=== PATIENT | female | born 1985 | race Caucasian/White ===

== ENCOUNTER 2016-08-07 20:55 | Emergency (ER) | payer BC, OTHER ==
[~2016-08-07] VITALS: Ht 165.1 cm; Wt 85.6 kg
[~2016-08-07 20:55] MED LIST: CALC500C50 PO; CETI10TA10 PO; PRENTAB26 PO; [UNRECOGNIZED DRUG - CODE] PO
[2016-08-07 20:58] VITALS: Ht 165.1 cm; Wt 85.6 kg
[2016-08-07] MEDS ORDERED: SODIUM CHLORIDE 0.9% 1000ML 1,000 ML IV STA (21:03)
--- NOTE | 2016-08-07 21:20 | EMERGENCY ROOM VISIT NOTE ---
History Report prepared by Buck: Jaelyn Royal Under the Supervision of: Dr. Anne Aquino M.D. First contact with patient: 20:57 Chief Complaint: CONFUSION Stated Complaint: FEVER, BODY ACHES, CONFUSSION, History of Present Illness The patient is a 31 year old female who presents to the Emergency Room with complaints of a persistent illness that began 1 week ago. She currently rates her discomfort as a 4/10 in severity. The patient states that 1 week ago her son got sick and states that she began feeling ill shortly after. She states that 1 week ago she tested negative for strep. The patient reports body and joint aches today. She additionally notes an intermittent fever measured up to 101 degrees Fahrenheit. The patient states that she went to her PCP today for concerns of the flu. She states that she had a urinalysis done, blood work testing her liver and kidney functions and a blood culture. The patient states that she was told if she started to feel worse, she should come to the emergency department. She states that this evening she started feeling confused and slow. The patient reports a history of PCOS and hypothyroidism. She reports that she is a nonsmoker. The patient denies any cough, vomiting, or diarrhea. Source of History: patient Onset: 1 week ago Position: other (global) Symptom Intensity: 4/10 Quality: other (illness) Timing: other (persistent) Associated Symptoms: + fevers, No cough, No vomiting, No diarrhea Note: Associated Symptoms: body and joint aches, confused, slow Review of Systems See HPI for pertinent positives & negatives. A total of 10 systems reviewed and were otherwise negative. Past Medical & Surgical Medical Problems: (1) 40 weeks gestation of (2) Insulin controlled gestational diabetes mellitus in third trimester (3) Normal labor and delivery (4) Shoulder (girdle) dystocia during labor and delivery Family History Diabetes mellitus Heart disease Hypertension Social History Smoking Status: Current Every Day Smoker Alcohol Use: occasionally Marital Status: Housing Status: lives with family Occupation Status: employed Current/Historical Medications Scheduled Atenolol (Tenormin), 25 MG PO DAILY Cetirizine Hcl (Zyrtec), 10 MG PO DAILY Levothyroxine Sodium (Levothyroxine Sodium), 75 MCG PO DAILY Metformin Hcl (Glucophage), 1,000 MG PO BID Norethindrone & Eth Estradiol (Dasetta ), 1 TAB PO DAILY Spironolactone (Aldactone), 50 MG PO DAILY Allergies Coded Allergies: No Known Allergies (Unverified , 01/11/15) Physical Exam Vital Signs Date Time Temp Pulse Resp B/P (MAP) Pulse Ox O2 Delivery O2 Flow Rate FiO2 08/07/16 23:25 37.4 81 18 100/57 96 08/07/16 22:32 91 18 105/66 99 Room Air 08/07/16 22:05 87 08/07/16 20:58 37.6 97 18 120/85 98 Room Air Physical Exam Vital signs reviewed. General: Well-appearing female, in no significant distress. HEENT: No scleral icterus, PERRLA, TMs clear bilaterally, clear posterior oropharynx, neck supple. Atraumatic. Cardiovascular: Regular rate and rhythm, no extra sounds. Pulmonary: Clear to auscultation bilaterally, normal work of breathing. Abdomen: Soft, nontender, nondistended, positive bowel sounds. Musculoskeletal: Atraumatic, no peripheral edema. Neurologic: Patient awake alert and oriented x 3, full strength in all 4 extremities. Cranial nerves 2 through 12 grossly intact. No meningeal signs. Skin: Warm, dry, no rash Medical Decision & Procedures ER Provider Diagnostic Interpretation: CT results as stated below per my review and radiologist interpretation: CT OF THE HEAD WITHOUT CONTRAST CLINICAL HISTORY: Altered mental status. Fever. COMPARISON STUDY: No previous studies for comparison. CT DOSE: 537.48 mGy.cm TECHNIQUE: Helical axial images of the head were obtained without IV contrast. Automated exposure control was utilized for the study. FINDINGS: No acute intracranial hemorrhage, midline shift or mass effect is present. Ventricular system is normal. Basilar cisterns are patent. There are no extra-axial collections. Valle-white differentiation is maintained. There are no findings to suggest acute dural sinus thrombosis or acute territorial infarct. There are no significant calvarial abnormalities. There is minimal mucosal thickening of the sinuses. Mastoid air cells are clear. IMPRESSION: No acute intracranial findings. Electronically signed by: Rah Becerra M.D. 08/07/2016 9:51 PM Dictated Date/Time: 08/07/2016 9:47 PM Laboratory Results 08/07/16 21:15 Red Blood Count 4.74, Mean Corpuscular Volume 84.2, Mean Corpuscular Hemoglobin 29.3, Mean Corpuscular Hemoglobin Concent 34.8, Mean Platelet Volume 9.4, Neutrophils (%) (Auto) 59.0, Lymphocytes (%) (Auto) 27.1, Monocytes (%) (Auto) 11.7, Eosinophils (%) (Auto) 1.4, Basophils (%) (Auto) 0.5, Neutrophils # (Auto ) 3.42, Lymphocytes # (Auto) 1.57, Monocytes # (Auto) 0.68, Eosinophils # (Auto ) 0.08, Basophils # (Auto) 0.03 08/07/16 21:15 Test 08/07/16 21:15 08/07/16 21:29 White Blood Count 5.80 K/uL (4.8-10.8) Red Blood Count 4.74 M/uL (4.2-5.4) Hemoglobin 13.9 g/dL (12.0-16.0) Hematocrit 39.9 % (37-47) Mean Corpuscular Volume 84.2 fL (80-100) Mean Corpuscular Hemoglobin 29.3 pg (25-34) Mean Corpuscular Hemoglobin Concent 34.8 g/dl (32-36) Platelet Count 229 K/uL (130-400) Mean Platelet Volume 9.4 fL (7.4-10.4) Neutrophils (%) (Auto) 59.0 % Lymphocytes (%) (Auto) 27.1 % Monocytes (%) (Auto) 11.7 % Eosinophils (%) (Auto) 1.4 % Basophils (%) (Auto) 0.5 % Neutrophils # (Auto) 3.42 K/uL (1.4-6.5) Lymphocytes # (Auto) 1.57 K/uL (1.2-3.4) Monocytes # (Auto) 0.68 K/uL (0.11-0.59) Eosinophils # (Auto) 0.08 K/uL (0-0.5) Basophils # (Auto) 0.03 K/uL (0-0.2) RDW Standard Deviation 37.7 fL (36.4-46.3) RDW Coefficient of Variation 12.3 % (11.5-14.5) Immature Granulocyte % (Auto) 0.3 % Immature Granulocyte # (Auto) 0.02 K/uL (0.00-0.02) Anion Gap 10.0 mmol/L (3-11) Est Creatinine Clear Calc Drug Dose 90.9 ml/min Estimated GFR () 90.7 Estimated GFR (Non- 78.3 BUN/Creatinine Ratio 5.4 (10-20) Calcium Level 9.1 mg/dl (8.5-10.1) Magnesium Level 2.0 mg/dl (1.8-2.4) Total Bilirubin 0.5 mg/dl (0.2-1) Direct Bilirubin 0.1 mg/dl (0-0.2) Aspartate Amino Transf (AST/SGOT) 76 U/L (15-37) Alanine Aminotransferase (ALT/SGPT) 78 U/L (12-78) Alkaline Phosphatase 70 U/L (45-117) Total Protein 8.2 gm/dl (6.4-8.2) Albumin 4.0 gm/dl (3.4-5.0) Thyroid Stimulating Hormone (TSH) 0.276 uIu/ml (0.300-4.500) Salicylates Level < 1.7 mg/dl (2.8-20) Acetaminophen Level < 2 ug/ml (10-30) Ethyl Alcohol mg/dL < 3.0 mg/dl (0-3) Urine Color YELLOW Urine Appearance CLEAR (CLEAR) Urine pH 7.5 (4.5-7.5) Urine Specific [place] 1.011 (1.000-1.030) Urine Protein NEG (NEG) Urine Glucose (UA) NEG (NEG) Urine Ketones NEG (NEG) Urine Occult Blood NEG (NEG) Urine Nitrite NEG (NEG) Urine Bilirubin NEG (NEG) Urine Urobilinogen NEG (NEG) Urine Leukocyte Esterase NEG (NEG) Urine Test NEG (NEG) Urine Opiates Screen NEG (NEG) Urine Methadone, Qualitative NEG (NEG) Urine Barbiturates NEG (NEG) Urine Phencyclidine (PCP) Level NEG (NEG) Ur Amphetamine/Methamphetamine NEG (NEG) MDMA (Ecstasy) Screen NEG (NEG) Urine Benzodiazepines Screen NEG (NEG) Urine Cocaine Metabolite NEG (NEG) Urine Marijuana (THC) NEG (NEG) Laboratory results per my review. Medications Administered Medications (Trade) Dose Ordered Sig/[place] Route Start Time Stop Time Status Last Admin Dose Admin Sodium Chloride 1,000 ml @ 999 mls/hr Q1H1M STAT IV 08/07/16 21:03 08/07/16 22:03 DC 08/07/16 21:52 999 MLS/HR Acetaminophen (Tylenol Tab) 650 mg NOW STAT PO 08/07/16 22:39 08/07/16 22:40 DC 08/07/16 22:49 650 MG ECG Indication: other (confusion, slow) Rate (beats per minute): 92 Rhythm: normal sinus Findings: no acute ischemic change, no ectopy ED Course 2102: Ordered Sodium Chloride 1000 ml @ 999 mls/hr IV. 2106: Past medical records reviewed. The patient was evaluated in room B9. A complete history and physical examination was performed. 2238: Ordered Tylenol Tab 650 mg PO. 2247: I reevaluated the patient and she is resting comfortably. I discussed the exam findings with her and I discussed the treatment plan. She verbalized complete understanding and agreement. She is ready to go home. Medical Decision The patient is a 31 year old female who presents to the ED with complaints of an illness. Differentials include influenza, other viral illness, pneumonia, urinary tract infection, metabolic abnormality, medication effect, cellulitis, meningitis, intra-abdominal source. Medication Reconciliation: I attest that I have personally reviewed the patient' s current medication list. Blood Pressure Screening: Patient was found to have normal blood pressure on screening and does not require follow-up. This patient was evaluated and appeared to be in no significant distress. Physical examination is fairly unrevealing. The patient is noted to have a low- grade fever. She was hydrated with normal saline solution given oral Tylenol. Laboratory work reveals a normal white blood cell count, normal LFTs. Rapid strep swab was obtained and is negative. UA is negative. CT scan of the head was performed due to the patient's complaints of altered mental status, this study is negative. Patient was advised of the findings. I suspect she is suffering from a flulike illness. She will follow-up with her primary care physician for reevaluation this week and return to the ER for worsening of symptoms or any medical concerns. Impression Primary Impression: Viral illness Scribe Attestation The scribe's documentation has been prepared under my direction and personally reviewed by me in its entirety. I confirm that the note above accurately reflects all work, treatment, procedures, and medical decision making performed by me. Departure Information Dispostion Home / Self-Care Referrals Eddie Kuo D.O. (PCP) Forms HOME CARE DOCUMENTATION FORM, IMPORTANT VISIT INFORMATION, WORK / SCHOOL INSTRUCTIONS Patient Instructions My [facility] Additional Instructions Diagnosis: Viral illness Tylenol 650 mg every 6 hours as needed for pain or fever. Ibuprofen 600 mg every 6 hours as needed for pain or fever with food. Drink plenty of clear fluids. Follow-up with your physician this week for reevaluation. Return to the ER for worsening of symptoms or any medical concerns.
[2016-08-07 21:28] LABS: BASO % 0.5 %; BASO ABS # 0.03 K/uL (0-0.2); COMPLETE YES; EOS % 1.4 %; HEMATOCRIT 39.9 % (37-47); IG% 0.3 %; LYMPH % 27.1 %; LYMPH ABS # 1.57 K/uL (1.2-3.4); MEAN CELL VOLUME 84.2 fL (80-100); MEAN CORPUSCULAR HEMOGLOBIN 29.3 pg (25-34); MEAN CORPUSCULAR HGB CONC 34.8 g/dl (32-36); MEAN PLATELET VOLUME 9.4 fL (7.4-10.4); MONO % 11.7 %; PLATELET COUNT 229 K/uL (130-400); RED BLOOD COUNT 4.74 M/uL (4.2-5.4)
[2016-08-07] MEDS ORDERED: ATEN25TA PO (21:48)
[2016-08-07] MEDS ORDERED: METF-384 PO (21:49)
[2016-08-07] MEDS ORDERED: SPIR50TA2 PO (21:50)
[2016-08-07] MEDS ORDERED: LEVO75TA5 PO (21:51)
--- NOTE | 2016-08-07 21:52 | DIAGNOSTIC IMAGING REPORT ---
CT OF THE HEAD WITHOUT CONTRAST CLINICAL HISTORY: Altered mental status. Fever. COMPARISON STUDY: No previous studies for comparison. CT DOSE: 537.48 mGy.cm TECHNIQUE: Helical axial images of the head were obtained without IV contrast. Automated exposure control was utilized for the study. FINDINGS: No acute intracranial hemorrhage, midline shift or mass effect is present. Ventricular system is normal. Basilar cisterns are patent. There are no extra-axial collections. Valle-white differentiation is maintained. There are no findings to suggest acute dural sinus thrombosis or acute territorial infarct. There are no significant calvarial abnormalities. There is minimal mucosal thickening of the sinuses. Mastoid air cells are clear. IMPRESSION: No acute intracranial findings. Electronically signed by: Rah Becerra M.D. 08/07/2016 9:51 PM Dictated Date/Time: 08/07/2016 9:47 PM
[2016-08-07 21:53] LABS: BUN/CREATININE RATIO 5.4 (10-20); CREATININE 0.96 mg/dl (0.60-1.20); POTASSIUM 3.4 mmol/L (3.5-5.1)
[2016-08-07 21:54] LABS: CALCIUM 9.1 mg/dl (8.5-10.1)
[2016-08-07] MEDS ORDERED: NORE1TAB59 PO (22:00)
[2016-08-07 22:03] LABS: THYROID STIMULATING HORMONE 0.276 uIu/ml (0.300-4.500)
[2016-08-07 22:03] LABS: URINE APPEARANCE CLEAR (CLEAR); URINE BILIRUBIN NEG (NEG); URINE COLOR YELLOW; URINE NITRITE NEG (NEG); URINE PH 7.5 (4.5-7.5); URINE SPECIFIC GRAVITY 1.011 (1.000-1.030); UROBILINOGEN NEG (NEG); ZZUR CULT IF INDIC CLEAN CATCH NO
[2016-08-07 22:08] LABS: MANUAL MICROSCOPIC REQUIRED? NO; REVIEW REQ? NO
[2016-08-07 22:10] LABS: ACETAMINOPHEN < 2 ug/ml (10-30)
[2016-08-07 22:35] LABS: BENZODIAZEPINE, URINE NEG (NEG); COCAINE,URINE NEG (NEG); PHENCYCLIDINE, URINE NEG (NEG)
[2016-08-07] MEDS ORDERED: ACETAMINOPHEN 325 MG TAB PO STA (22:39)
[2016-08-07 23:25] VITALS: BP 100/57; PULSE 81; TEMP 37.4; O2SAT 96
== END 2016-08-07 23:25 | disposition home or self-care (01) ==
LOC: C.EDB 20:56
DX: B34.9 Viral infection, unspecified (principal); E28.2 Polycystic ovarian syndrome; E03.9 Hypothyroidism, unspecified; F17.200 Nicotine dependence, unspecified, uncomplicated; Z86.32 Personal history of gestational diabetes; Z83.3 Family history of diabetes mellitus; Z82.49 Family history of ischemic heart disease and other diseases of the circulatory system; Z79.899 Other long term (current) drug therapy

== ENCOUNTER → 2017-01-31 | Outpatient (CLI) | payer BC, OTHER ==
[~2017-01-31] MED LIST changes: +ATEN25TA PO; -CALC500C50 PO; +LEVO75TA5 PO; +METF-384 PO; +NORE1TAB59 PO; -PRENTAB26 PO; +SPIR50TA2 PO; -[UNRECOGNIZED DRUG - CODE] PO
== END | disposition home or self-care (01) ==
LOC: C.PAPS 14:01
PROVIDERS: ATTEND Obstetrics & Gynecology
DX: Z01.411 Encounter for gynecological examination (general) (routine) with abnormal findings (principal); R87.610 Atypical squamous cells of undetermined significance on cytologic smear of cervix (ASC-US)

== ENCOUNTER → 2017-05-07 | Outpatient (CLI) | payer OTHER ==
[~2017-05-07] MED LIST changes: +BCPILLS PO
== END | disposition home or self-care (01) ==
LOC: C.PATHSPEC 14:01
PROVIDERS: ATTEND Obstetrics & Gynecology
DX: R87.612 Low grade squamous intraepithelial lesion on cytologic smear of cervix (LGSIL) (principal); R87.613 High grade squamous intraepithelial lesion on cytologic smear of cervix (HGSIL); R87.810 Cervical high risk human papillomavirus (HPV) DNA test positive; R87.610 Atypical squamous cells of undetermined significance on cytologic smear of cervix (ASC-US)

== ENCOUNTER → 2017-05-07 | Outpatient (CLI) | payer OTHER | END | disposition home or self-care (01) | LOC: C.PAPS 14:14 | PROVIDERS: ATTEND Obstetrics & Gynecology | DX: R87.612 Low grade squamous intraepithelial lesion on cytologic smear of cervix (LGSIL) (principal); R87.810 Cervical high risk human papillomavirus (HPV) DNA test positive ==

== ENCOUNTER → 2017-06-14 | Day surgery (SDC) | payer OTHER ==
[2017-05-15 10:23] VITALS: Ht 165.1 cm; Wt 85.5 kg
[~2017-06-14] VITALS: Ht 165.1 cm; Wt 85.5 kg
[~2017-06-14] MED LIST changes: +ACETAMINOPHEN 325 MG TAB PO PRN; +ACETIC ACID 4% (WHITE VINEGAR) 30ML ONE; +AMX250; +ATROPINE SULFATE 0.1 MG/ML 5ML SYR IV PRN; +BENZ100C84 PO; -CETI10TA10 PO; +DEXAMETHASONE SOD INJ 4 MG/ML VIAL ONE; +EpHEDrine SULFATE INJ 50 MG/ML AMP IV PRN; +FENTANYL CITRATE INJ 50 MCG/1 ML 2 ML VIAL IV PRN; +FENTANYL CITRATE INJ 50 MCG/1 ML 2 ML VIAL ONE; +FERRIC SUBSULFATE 8 GM VIAL ONE; +HYDROmorphone INJ 2 MG/ML SYR/VIAL IV PRN; +IBUPROFEN 600 MG TAB PO PRN; +IODINE SOLN STRONG 14 ML ONE; +KETOROLAC TROMETHAMINE 30 MG/ML VIAL IV. PRN; +KETOROLAC TROMETHAMINE 30 MG/ML VIAL ONE; +LACTATED RINGER'S 1000ML 1,000 ML IV SCH; +LIDOCAINE HCL 2% 2 ML VIAL (20MG/ML) ONE; +LIDOCAINE HCL 2% LOCAL 20 ML VIAL ONE; +MIDAZOLAM HCL 1 MG/ML 2ML VIAL ONE; -NORE1TAB59 PO; +ONDANSETRON INJ 2 MG/ML 2 ML VIAL IV PRN; +ONDANSETRON INJ 2 MG/ML 2 ML VIAL ONE; +OXYCODONE/ACETAMINOPHEN 5-325 TAB PO PRN; +PROMETHAZINE HCL INJ 25 MG in SODIUM CHLORIDE 0.9% 50ML 50 ML IV PRN; +PROPOFOL IV EMULSION 10 MG/ML 20 ML VIAL IV ONE; +SODIUM CHLORIDE 0.9% 1000ML 1,000 ML IV SCH
--- NOTE | 2017-06-14 07:41 | History & Physical Bridge - SC ---
H&P Re-Evaluation Bridge Note: I have examined the patient, reviewed the History & Physical and in the interval since the performance of the History & Physical I have noted the following changes of clinical significance: No changes noted
[2017-06-14] MEDS: LIDOCAINE/EPINEPHRINE 1% 20 ML VIAL ONE ×2 (08:07→08:10)
--- NOTE | 2017-06-14 08:12 | [facility] Post Operative Brief Note ---
Immediate Operative Summary Operative Date Jun 14, 2017. Pre-Operative Diagnosis LAZARO 2 requiring LEEP excision Post-Operative Diagnosis Same as pre-op Procedure(s) Performed Loop Electrosurgical Excision Procedure (LEEP) Surgeon Green Chainer Surgeon(s) None Estimated Blood Loss 5 Findings Consistent with Post-Op Diagnosis Fluids (cc crystalloids) 400 Specimens cervical LEEP specimens Drains None Anesthesia Type Local Complication(s) none Disposition Accompanied Pt To Recovery: yes Disposition: Recovery Room / PACU
[2017-06-14 08:16] VITALS: TEMP 36.4
--- NOTE | 2017-06-14 08:21 | Discharge Instructions-SurgCtr ---
Discharge Instructions Date of Service Jun 14, 2017. Visit Reason for Visit: Cervical High Grade Hpv Test Positive, Discharge Discharge Diagnosis / Problem: excision of cervical dysplasia Discharge Goals Goal(s): Therapeutic intervention Medications Stopped Medications Name(s): metforamin stopped yesterday 06-14-17 Activity Recommendations Activity Limitations: per Instructions/Follow-up section Anesthesia . Post Anesthesia Instructions: If you have had General Anesthesia or IV Sedation: * Do not drive today. * Resume driving when surgeon permits. * Do not make important decisions or sign legal documents today. * Call surgeon for: 1. Temperature elevations greater than 101 degrees F. 2. Uncontrollable pain. 3. Excessive bleeding. 4. Persistent nausea and vomiting. 5. Medication intolerance (nausea, vomiting or rash). * For nausea and vomiting use only clear liquids such as: tea, soda, bouillon until nausea subsides, then gradually increase diet as tolerated. * If you have any concerns or questions, call your surgeon's office. If physician is unavailable and it is an emergency, call 911 or go to the nearest emergency room. . Instructions / Follow-Up Instructions / Follow-Up SEE ATTACHED INSTRUCTIONS Diet Recommendations Home Diet: resume previous diet Procedures Procedures Performed: Loop Electrosurgical Excision Procedure (LEEP) Pending Studies Studies pending at discharge: no Medical Emergencies . Who to Call and When: Medical Emergencies: If at any time you feel your situation is an emergency, please call 911 immediately. . Non-Emergent Contact Non-Emergency issues call your: Technical Director . . "Provider Documentation" section prepared by Janee Zendejas .
[2017-06-14 08:45] VITALS: PULSE 49; O2SAT 98
--- NOTE | 2017-06-14 08:46 | Anesthesia Progress Nt - [facility] ---
Anesthesia Post Op Note Date & Time Jun 14, 2017 at 08:46 Vital Signs Pain Intensity: 0 Vital Signs Past 12 Hours Date Time Temp Pulse Resp B/P (MAP) Pulse Ox O2 Delivery O2 Flow Rate FiO2 06/14/17 08:16 36.4 65 16 98/62 (74) 96 Room Air 06/14/17 07:02 36.8 65 16 106/72 (83) 96 Room Air Notes Mental Status: alert / awake / arousable, participated in evaluation Pt Amnestic to Procedure: Yes Nausea / Vomiting: adequately controlled Pain: adequately controlled Airway Patency, RR, SpO2: stable & adequate BP & HR: stable & adequate Hydration State: stable & adequate Anesthetic Complications: no major complications apparent
[2017-06-14 08:49] VITALS: BP 98/62
--- NOTE | 2017-06-14 11:18 | OPERATIVE REPORT ---
DATE OF OPERATION: 06/14/2017 SURGEON: Janee Crain MD PREOPERATIVE DIAGNOSIS: High-grade cervical intraepithelial lesion. POSTOPERATIVE DIAGNOSIS: Same. PROCEDURE: LEEP procedure. ANESTHESIA: Under IV sedation and local anesthetic with 2% lidocaine. HISTORY OF PRESENT ILLNESS: Patient is a 32-year-old G1, P1-0-0-1, white female who was diagnosed with cervical intraepithelial neoplasia 2. This was confirmed on colposcopy. During the course of the colposcopy, the patient was quite anxious and did not tolerate the procedure well. The patient was requesting that the LEEP procedure, which is normally done in the office to be done in the OR because of her anxiety and inability to stay still. She understands the risks of procedure and is willing to proceed. GROSS FINDINGS: External genitalia within normal limits. There is no vaginal or cervical lesions noted on initial inspection. With application of the Lugol solution, the areas of abnormality were noted from the 12 o'clock to 6 o'clock position on the right side of the cervix. After placing 2% lidocaine circumferentially around the cervix, the LEEP procedure was done and the lesion was removed in total. The base of the LEEP site was cut. Bleeding was controlled with the ball cautery and with the Astrogyn solution. Hemostasis was excellent at the end of the case. The patient tolerated the procedure well and was stable upon arrival in recovery room. Acetic acid was used as the antiseptic solution on the cervix prior to doing the procedure. I attest to the content of the Intraoperative Record and any orders documented therein. Any exception s are noted below.
== END | disposition home or self-care (01) ==
LOC: X.SURG 06:44
PROVIDERS: ATTEND Obstetrics & Gynecology
DX: R87.613 High grade squamous intraepithelial lesion on cytologic smear of cervix (HGSIL) (principal); R87.810 Cervical high risk human papillomavirus (HPV) DNA test positive; F41.9 Anxiety disorder, unspecified; K76.0 Fatty (change of) liver, not elsewhere classified; E66.9 Obesity, unspecified; R00.2 Palpitations; E03.9 Hypothyroidism, unspecified; Z86.32 Personal history of gestational diabetes; Z68.37 Body mass index [BMI] 37.0-37.9, adult; Z83.3 Family history of diabetes mellitus; Z82.5 Family history of asthma and other chronic lower respiratory diseases; Z79.84 Long term (current) use of oral hypoglycemic drugs; Z79.899 Other long term (current) drug therapy

== ENCOUNTER → 2017-10-08 | Outpatient (CLI) | payer OTHER ==
[~2017-10-08] MED LIST changes: -ACETAMINOPHEN 325 MG TAB PO PRN; -ACETIC ACID 4% (WHITE VINEGAR) 30ML ONE; -ATROPINE SULFATE 0.1 MG/ML 5ML SYR IV PRN; -DEXAMETHASONE SOD INJ 4 MG/ML VIAL ONE; -EpHEDrine SULFATE INJ 50 MG/ML AMP IV PRN; -FENTANYL CITRATE INJ 50 MCG/1 ML 2 ML VIAL IV PRN; -FENTANYL CITRATE INJ 50 MCG/1 ML 2 ML VIAL ONE; -FERRIC SUBSULFATE 8 GM VIAL ONE; -HYDROmorphone INJ 2 MG/ML SYR/VIAL IV PRN; -IBUPROFEN 600 MG TAB PO PRN; -IODINE SOLN STRONG 14 ML ONE; -KETOROLAC TROMETHAMINE 30 MG/ML VIAL IV. PRN; -KETOROLAC TROMETHAMINE 30 MG/ML VIAL ONE; -LACTATED RINGER'S 1000ML 1,000 ML IV SCH; -LIDOCAINE HCL 2% 2 ML VIAL (20MG/ML) ONE; -LIDOCAINE HCL 2% LOCAL 20 ML VIAL ONE; -MIDAZOLAM HCL 1 MG/ML 2ML VIAL ONE; -ONDANSETRON INJ 2 MG/ML 2 ML VIAL IV PRN; -ONDANSETRON INJ 2 MG/ML 2 ML VIAL ONE; -OXYCODONE/ACETAMINOPHEN 5-325 TAB PO PRN; -PROMETHAZINE HCL INJ 25 MG in SODIUM CHLORIDE 0.9% 50ML 50 ML IV PRN; -PROPOFOL IV EMULSION 10 MG/ML 20 ML VIAL IV ONE; -SODIUM CHLORIDE 0.9% 1000ML 1,000 ML IV SCH
--- NOTE | 2017-10-08 08:47 | DIAGNOSTIC IMAGING REPORT ---
ABDOMEN LIMITED (US) HISTORY: Pain. Nausea. RLQ PAIN. COMPARISON: None. FINDINGS: Ultrasonic evaluation of the anterior abdominal wall shows no evidence for hernia. No evidence for survey for umbilical or periumbilical hernia. IMPRESSION: Normal study with no evidence for hernia. The above report was generated using voice recognition software. It may contain grammatical, syntax or spelling errors. Electronically signed by: Jalil Moralez M.D. 10/08/2017 8:46 AM Dictated Date/Time: 10/08/2017 8:45 AM
--- NOTE | 2017-10-08 09:20 | DIAGNOSTIC IMAGING REPORT ---
PELVIC COMPLETE NON OB CLINICAL HISTORY: . PAIN COMPARISON STUDY: 07/04/2011 FINDINGS: The uterus measured 7.4 cm. The endometrial stripe measured 5 mm. The right ovary measured 3.2 cm maximum dimension with normal vascular flow. The left ovary measured 3.3 cm maximum dimension with normal vascular flow. There is no ultrasonographic evidence of ovarian torsion. It should be noted that ovarian torsion can be present with normal Doppler ultrasonographic findings. There was no evidence of pathologic free pelvic fluid. IMPRESSION: Normal study The above report was generated using voice recognition software. It may contain grammatical, syntax or spelling errors. Electronically signed by: Jalil Moralez M.D. 10/08/2017 9:18 AM Dictated Date/Time: 10/08/2017 9:17 AM
== END | disposition home or self-care (01) ==
LOC: C.ULTR 08:06
PROVIDERS: ATTEND Student in an Organized Health Care Education/Training Program
DX: R10.31 Right lower quadrant pain (principal)